=== PATIENT | male | born 1975 | race Caucasian/White ===

== ENCOUNTER 2023-08-06 06:31 | Day surgery (SDC) | payer SELFPAY ==
--- OUTSIDE RECORDS SUMMARY | 2023-08-06 06:34 | XMS RPT_ITS | CCD ---
Author Name Unknown Address [address] [place] [address] Organization [facility] Care Team Providers Care Grand Scribe Name Role Phone Jalen LUCAS, Garry Garza Unavailable Garry Rao MD Unavailable Parul LUCAS, Dr. Wilson Unavailable Wanda Nagy LPN Unavailable Unavailable Problems Active Problems Problem Classification Problem Date Documented Da te Episodic/Chronic Gastrointestinal hemorrhage (2 sources) Gastrointestinal hemorrhage; Translations: [Hemorrhage of anus and rectum] 06-19-2023 Episodic Other screening for suspected conditions (not mental disorders or infectious disease) (2 sources) Patient encounter status; Translations: [Encounter for screening for malignant neoplasm of prostate] 06-17-2020 Episodic Past or Other Problems Problem Classification Problem Date Documented Da te Episodic/Chronic Unclassified (1 source) wants colonoscopy - patient has not been seen since 2000patient is here today because he is wanting a colonoscopy, due to his age and some rectal bleedingHe has had rectal bleeding with wiping over the last year, this comes and goes- always bright red Every now and then he will have a little blood in the toilet bowl, but not oftenNO painIt always ends up going away, but then comes back No weight loss, no abdominal pain. Negative family hx for colon cancer 06-19-2023 Results Test Name Value Interpretation Reference Range Facil ity Vital Signs Date Time Vital Sign Value Performing Clinician Faci lity 06-19-2023 07:06-0500 Body height 177.8 cm Garry Rao MD Work Phone: [facility] 06-19-2023 07:06-0500 Body mass index (BMI) [Ratio] 28.98 kg/m2 Garry Rao MD Work Phone: [employer]; [employer]. 06-19-2023 07:06-0500 Body surface area Derived from formula 2.1 m2 Garry Rao MD Work Phone: [employer] [employer]. 06-19-2023 07:06-0500 Body weight 91.63 kg Garry Rao MD Work Phone: [employer]; [employer]. 06-19-2023 07:06-0500 Diastolic blood pressure 72 mm[Hg] Garry Rao MD Work Phone: [employer]; [employer]. Encounters Encounter Date Encounter Type Care Provider Facility Start: 06-19-2023 End: 06-19-2023 Office outpatient visit 15 minutes Garry Rao MD Work Phone: [facility] Start: 06-17-2020 End: 06-20-2020 Orders Garry Rao MD Work Phone: [facility] Procedures Date Procedure Procedure Detail Performing Clinician Start: 06-19-2023 End: 06-19-2023 No Known Past Surgical History Garry Rao MD Work Phone: Social History Date Type Detail Facility Spouse Spouse Ingo Money; [employer]. Male [employer] [employer]. Work Phone: Tobacco smoking consumption unknown [facility]; [employer]. Work Phone: Summary Purpose Family History Cancer Status:Active Comments:Paterna l Grandfather. Advance Directives No Advanced Directives Records Found Additional Source Comments (unrecognized sect ion and content) No Status Records Found INFORMATION SOURCE (unrecogn ized section and content) FOR RECORDS PERTAINING TO PATIENTS WHO ARE OR HAVE BEEN ENROLLED IN A CHEMICAL DEPENDENCY/SUBSTANCEABUSE PROGRAM, SOME INFORMATION MAY BE OMITTED. This clinical summary was aggregated from multiple sources. Caution should be exercised in using it in the provision of clinical care. This summary normalizes information from multiple sources, and as a consequence, information in this document may materially change the coding, format and clinical context of patient data. In addition, data may be omitted in some cases. CLINICAL DECISIONS SHOULD BE BASED ON THE PRIMARY CLINICAL RECORDS. [facility] [employer] [facility]. provides no warranty or guarantee of the accuracy or completeness of information in this document.
--- NOTE | 2023-08-06 06:49 | PCM.HP.BLA ---
History and Physical Date of Admission: 08/06/23 Intake Vital Signs 07/01/2408:49 Height 5 ft 10 in Weight: 200 lb BMI 28.7 BP 127/78 H Blood Pressure Location Rt brachial Position Sitting Respiration 18 Pulse 67 Pulse Source Monitor Temp 97.4 F L Temp Source Temporal Pulse Oximetry (%) 100 Oxygen Delivery Method room air Intake Visit Reasons: COLONOSCOPY SCREENING, RECTAL BLEEDING Chief Complaint: colonoscopy screening, rectal bleeding Is patient in pain?: No Allergies No Known Allergies Allergy (Unverified 07/01/23 09:49) Medications NK 07/01/23 [History Confirmed 07/01/23] [facility] Social History (Updated 07/01/23 @ 09:49 by Sudha Colbert LPN) Smoking Status: Never smoker alcohol intake: current alcohol intake frequency: holidays/special occasions only substance use type: does not use HPI HPI HPI: 48-year-old male here for colonoscopy. The patient has been having blood in his stool for several years. He said normally it is small amount of bright red blood but occasionally about once a year it is a large amount of blood and this happened recently. He is not having any abdominal pain or constipation or pain with bowel movements. He has never had a colonoscopy and has no family history of colon cancer. [facility] Musculoskeletal: Yes back problems Gastro Gastrointestinal: Yes blood in stool Additional Details: bright red blood in stool Exam Const General: cooperative Orientation: alert and oriented x3 HENMT Head: normal to inspection Neck Neck: normal visual inspection and full ROM Chest Chest palpation & inspection: normal inspection of the chest Resp Effort & Inspection: normal respiratory effort Auscultation: clear to auscultation bilaterally Cardio Rate: regular rate Rhythm: regular rhythm GI Inspection: non-distended Palpation: soft and nontender Skin General: no rashes or lesions noted Neuro General: patient alert and patient oriented x3 Extrem General: full ROM Psych Appearance: grossly normal Mental Status: mental status grossly normal Assessment and Plan Assessment and Plan (1) Blood in stool, maru: Status: Acute Plan: Patient is having blood in his stool. He is also having bright red blood when he Has a bowel movement and wipes. I recommended colonoscopy to evaluate for the source of bleeding and I did that I would retroflex and look for hemorrhoids and we can discuss hemorrhoidectomy if that is the cause of the bleeding. I explained endoscopy in detail to the patient. I explained the risks including but not limited to stroke or heart attack with anesthesia, perforation of the GI tract, bleeding, infection. I explained that any of these could necessitate further emergency surgery. The patient understands and all questions were answered sufficiently. The patient wishes to proceed with procedure. Steve Teran MD Pager: [facility] [address] [place] [address], [address] [place] [address] Office: I have examined the patient and the H&P has been reviewed. There are no clinical changes since date of exam.
[2023-08-06 07:03] VITALS: BP 119/80; PULSE 80; RESP 14; TEMP 36; O2SAT 98; BMI 27.5
[2023-08-06] MEDS: Lactated Ringers 1,000 ML 15 ML IV (07:05)
--- NOTE | 2023-08-06 08:07 | PCM.PN.BLA ---
Progress Note I was able to make it to the cecum but the prep was not adequate. There were no large masses and I did not appreciate a very large hemorrhoids that look like they recently bled. I will reschedule him for a month from now with a Miesha prep to evaluate.
[2023-08-06 08:10] VITALS: BP 112/75; BP 119/80; PULSE 70; RESP 16; TEMP 36.1; O2SAT 99
--- NOTE | 2023-08-06 08:11 | OP.COLON_ITS ---
Patient Name: Rubin Delgadillo Procedure Date: 08/06/2023 7:08 AM Date of : 1975 Age: 48 Procedure: Colonoscopy Indications: Rectal bleeding Providers: Steve Teran MD Medicines: Monitored Anesthesia Care Patient Profile: This is a 48 year old male. Refer to note in patient chart for documentation of history and physical. Last Colonoscopy: none. The patient's first colonoscopy is today. Complications: No immediate complications. Procedure: Pre-Anesthesia Assessment: - Prior to the procedure, a History and Physical was performed, and patient medications and allergies were reviewed. The patient's tolerance of previous anesthesia was also reviewed. The risks and benefits of the procedure and the sedation options and risks were discussed with the patient. All questions were answered, and informed consent was obtained. Prior Anticoagulants: The patient has taken no anticoagulant or antiplatelet agents. After reviewing the risks and benefits, the patient was deemed in satisfactory condition to undergo the procedure. After I obtained informed consent, the scope was passed under direct vision. Throughout the procedure, the patient's blood pressure, pulse, and oxygen saturations were monitored continuously. The Colonoscope was introduced through the anus and advanced to the cecum, identified by appendiceal orifice and ileocecal valve. The colonoscopy was performed with difficulty due to inadequate bowel prep. The patient tolerated the procedure well. The quality of the bowel preparation was inadequate. The ileocecal valve, appendiceal orifice, and rectum were photographed. Scope In: 7:33:59 AM Scope Withdrawal Time 0 hours 14 minutes 10 seconds Scope Out: 8:03:26 AM Total Procedure Duration Time 0 hours 29 minutes 27 seconds Findings: The entire examined colon appeared normal on direct and retroflexion views. Impression: - Preparation of the colon was inadequate. - The entire examined colon is normal on direct and retroflexion views. - No specimens collected. Recommendation: - Discharge patient to home. - Resume previous diet. - Continue present medications. - Repeat colonoscopy in 1 month because the bowel preparation was poor. Procedure Code(s): --- Professional --- 06080, Colonoscopy, flexible; diagnostic, including collection of specimen(s) by brushing or washing, when performed (separate procedure) Diagnosis Code(s): --- Professional --- K62.5, Hemorrhage of anus and rectum CPT copyright 2021 [employer]. All rights reserved. The codes documented in this report are preliminary and upon hair baler review may be revised to meet current compliance requirements. Steve Teran MD 08/06/2023 8:10:27 AM This report has been signed electronically. Number of Addenda: 0 Note Initiated On: 08/06/2023 7:08 AM
--- NOTE | 2023-08-06 08:11 | OP.CCLET_ITS ---
08/06/2023 Garry Rao Re : Colonoscopy procedure for Rubin Delgaidllo Dear Jalen This procedure was performed on Sunday, August 06, 2023. My impressions and recommendations are as follows: Impressions : - Preparation of the colon was inadequate. - The entire examined colon is normal on direct and retroflexion views. - No specimens collected. Recommendations : - Discharge patient to home. - Resume previous diet. - Continue present medications. - Repeat colonoscopy in 1 month because the bowel preparation was poor. My findings are described in the full procedure note, which is enclosed. If I can be of further assistance, please feel free to contact me at Doctor phone number(s): , Work: . Sincerely, Steve Teran MD 08/06/2023 8:10:27 AM This report has been signed electronically.
[2023-08-06 08:15] VITALS: BP 109/79; BP 119/80; PULSE 67; RESP 16; O2SAT 99
[2023-08-06 08:20] VITALS: BP 118/79; BP 119/80; PULSE 67; RESP 16; O2SAT 100
[2023-08-06 08:25] VITALS: BP 113/74; BP 119/80; PULSE 72; RESP 16; TEMP 36.6; O2SAT 100
[2023-08-06 08:41] VITALS: BP 119/80
== END 2023-08-06 08:45 | disposition home or self-care (01) ==
LOC: EN 06:36 → AC 06:36
PROVIDERS: PCP Family Medicine; Referring Provider Family Medicine; Visit Provider Surgery
PROC: 0DJD8ZZ Inspection of Lower Intestinal Tract, Via Natural or Artificial Opening Endoscopic (ICD-10-PCS; CPT 45378; principal; 2023-08-06 07:25)
DX: K62.5 Hemorrhage of anus and rectum (principal)
CPT/HCPCS: 45378; J7120; J2405

== ENCOUNTER 2023-09-10 08:40 | Day surgery (SDC) | payer SELFPAY ==
[2023-09-10 09:01] VITALS: BP 110/68; PULSE 96; RESP 18; TEMP 36.1; O2SAT 99; BMI 27.0
[2023-09-10] MEDS: Lactated Ringers 1,000 ML 15 ML IV (09:09)
--- NOTE | 2023-09-10 09:42 | PCM.HP.BLA ---
History and Physical Date of Admission: 09/10/23 History and Physical Date of Admission: 08/06/23 Intake Vital Signs 07/01/2408:49 Height 5 ft 10 in Weight: 200 lb BMI 28.7 BP 127/78 H Blood Pressure Location Rt brachial Position Sitting Respiration 18 Pulse 67 Pulse Source Monitor Temp 97.4 F L Temp Source Temporal Pulse Oximetry (%) 100 Oxygen Delivery Method room air Intake Visit Reasons: COLONOSCOPY SCREENING, RECTAL BLEEDING Chief Complaint: colonoscopy screening, rectal bleeding Is patient in pain?: No Allergies No Known Allergies Allergy (Unverified 07/01/23 09:49) Medications NK 07/01/23 [History Confirmed 07/01/23] PFSH Social History (Updated 07/01/23 @ 09:49 by Sudha Colbert LPN) Smoking Status: Never smoker alcohol intake: current alcohol intake frequency: holidays/special occasions only substance use type: does not use HPI HPI HPI: 48-year-old male here for colonoscopy. The patient has been having blood in his stool for several years. He said normally it is small amount of bright red blood but occasionally about once a year it is a large amount of blood and this happened recently. He is not having any abdominal pain or constipation or pain with bowel movements. He has never had a colonoscopy and has no family history of colon cancer. [facility] Musculoskeletal: Yes back problems Gastro Gastrointestinal: Yes blood in stool Additional Details: bright red blood in stool Exam Const General: cooperative Orientation: alert and oriented x3 HENMT Head: normal to inspection Neck Neck: normal visual inspection and full ROM Chest Chest palpation & inspection: normal inspection of the chest Resp Effort & Inspection: normal respiratory effort Auscultation: clear to auscultation bilaterally Cardio Rate: regular rate Rhythm: regular rhythm GI Inspection: non-distended Palpation: soft and nontender Skin General: no rashes or lesions noted Neuro General: patient alert and patient oriented x3 Extrem General: full ROM Psych Appearance: grossly normal Mental Status: mental status grossly normal Assessment and Plan Assessment and Plan (1) Blood in stool, maru: Status: Acute Plan: Patient is having blood in his stool. He is also having bright red blood when he Has a bowel movement and wipes. I recommended colonoscopy to evaluate for the source of bleeding and I did that I would retroflex and look for hemorrhoids and we can discuss hemorrhoidectomy if that is the cause of the bleeding. I explained endoscopy in detail to the patient. I explained the risks including but not limited to stroke or heart attack with anesthesia, perforation of the GI tract, bleeding, infection. I explained that any of these could necessitate further emergency surgery. The patient understands and all questions were answered sufficiently. The patient wishes to proceed with procedure. Steve Teran MD Pager: [place] [phone] Office: I have seen and examined the patient again. There are no changes physically. The patient had a poor bowel prep last time it had to be canceled and we will attempt to repeat today. Steve Teran MD Pager: [address], [address] [phone] Office:
--- NOTE | 2023-09-10 10:09 | OP.CCLET_ITS ---
09/10/2023 Garry Rao Re : Colonoscopy procedure for Rubin Delgadillo Dear Jalen This procedure was performed on Sunday, September 10, 2023. My impressions and recommendations are as follows: Impressions : - Preparation of the colon was poor. - Stool. - No specimens collected. Recommendations : - Discharge patient to home. - Resume previous diet. - Continue present medications. - Refer to a surgeon at appointment to be scheduled. - Repeat colonoscopy at appointment to be scheduled because the bowel preparation was poor. My findings are described in the full procedure note, which is enclosed. If I can be of further assistance, please feel free to contact me at Doctor phone number(s): , Work: . Sincerely, Steve Teran MD 09/10/2023 10:08:38 AM This report has been signed electronically.
--- NOTE | 2023-09-10 10:09 | OP.COLON_ITS ---
Patient Name: Rubin Delgadillo Procedure Date: 09/10/2023 9:52 AM Date of : 1975 Age: 48 Procedure: Colonoscopy Indications: Anal bleeding Providers: Steve Teran MD Medicines: Propofol per Anesthesia Patient Profile: Last Colonoscopy: none. The patient's first colonoscopy is today. Complications: No immediate complications. Procedure: Pre-Anesthesia Assessment: - Prior to the procedure, a History and Physical was performed, and patient medications and allergies were reviewed. The patient's tolerance of previous anesthesia was also reviewed. The risks and benefits of the procedure and the sedation options and risks were discussed with the patient. All questions were answered, and informed consent was obtained. Prior Anticoagulants: The patient has taken no anticoagulant or antiplatelet agents. After reviewing the risks and benefits, the patient was deemed in satisfactory condition to undergo the procedure. After I obtained informed consent, the scope was passed under direct vision. Throughout the procedure, the patient's blood pressure, pulse, and oxygen saturations were monitored continuously. The colonoscope was introduced through the anus with the intention of advancing to the cecum. The scope was advanced to the sigmoid colon before the procedure was aborted. Medications were not given. The quality of the bowel preparation was poor. Scope In: 9:59:51 AM Scope Out: 10:02:58 AM Total Procedure Duration Time 0 hours 3 minutes 7 seconds Findings: [Description] stool was found [Site] [Visualization]. Impression: - Preparation of the colon was poor. - Stool. - No specimens collected. Recommendation: - Discharge patient to home. - Resume previous diet. - Continue present medications. - Refer to a surgeon at appointment to be scheduled. - Repeat colonoscopy at appointment to be scheduled because the bowel preparation was poor. Procedure Code(s): --- Professional --- 11579, 53, Colonoscopy, flexible; diagnostic, including collection of specimen(s) by brushing or washing, when performed (separate procedure) Diagnosis Code(s): --- Professional --- K62.5, Hemorrhage of anus and rectum CPT copyright 2021 [employer]. All rights reserved. The codes documented in this report are preliminary and upon auditing coder review may be revised to meet current compliance requirements. Steve Teran MD 09/10/2023 10:08:38 AM This report has been signed electronically. Number of Addenda: 0 Note Initiated On: 09/10/2023 9:52 AM
[2023-09-10 10:11] VITALS: BP 110/68; BP 113/85; PULSE 80; RESP 18; TEMP 36.5; O2SAT 99
[2023-09-10 10:14] VITALS: BP 110/68; BP 115/81; PULSE 74; RESP 18; O2SAT 98
[2023-09-10 10:21] VITALS: BP 110/68; BP 113/83; PULSE 74; RESP 14; O2SAT 98
[2023-09-10 10:24] VITALS: BP 110/68; BP 118/82; PULSE 75; RESP 18; TEMP 36.4; O2SAT 97
--- NOTE | 2023-09-10 10:34 | SUR.PHASEI ---
TATIANA DID NOT LOG OUT AI MCCABE. INITIAL PACU ASSESSMENTS DOCUMENTED UNDER AI MCCABE BUT COMPLETED BY WENDY MCCABE.
--- NOTE | 2023-09-10 10:59 | PCM.PN.BLA ---
Progress Note I met with the patient before his procedure and asked him if his bowel prep was clear. He reports it was clear and much better than last time. I asked him if he can see to the bottom of the toilet and he said yes. I took him back for his procedure and he still had basically unprepped colon. There was stool everywhere and I was unable to assess any of the colon. I discussed with him and he said he never got instructions to do a 2-day prep after his last failed prep and he just did the same prep he did last time which not surprisingly did not work. It is documented in the computer that we instructed him to do a 2-day prep and we did send a prescription of GoLytely for a second day to his pharmacy in [place]. He said he never received any instructions from our office to go picking machine operator a prescription and the pharmacy never called him. He called in saying he did not have bowel prep instructions so we asked him to come in and pick them up. He did but I am unsure if one of my staff gave him the wrong instructions because he says he has the exact same prep at home and he did a MiraLAX prep again. I offered him to go to [facility] for a repeat attempt of this and management and he would like to stay here. I offered him repeat with a definite 2-day bowel preparation and I hand-delivered instructions for 2-day bowel prep to him in recovery. If you would like to proceed he will call our office to reschedule and we will reorder GoLytely. The patient is also requesting that this visit not be charged for. I informed the patient that we could try to ask finance if they would we have any of the charges or decrease them but unfortunately we proceeded as he told me the prep worked and he was clear. Steve Teran MD Pager: [facility] [address] [place] [address], [address] [place] [address] Office:
[2023-09-10 11:08] VITALS: BP 110/68
== END 2023-09-10 11:12 | disposition home or self-care (01) ==
LOC: EN 08:45 → AC 08:47
PROVIDERS: PCP Family Medicine; Referring Provider Family Medicine; Visit Provider Surgery
PROC: 0DJD8ZZ Inspection of Lower Intestinal Tract, Via Natural or Artificial Opening Endoscopic (ICD-10-PCS; CPT 45378; principal; 2023-09-10 09:25)
DX: K62.5 Hemorrhage of anus and rectum (principal); F17.290 Nicotine dependence, other tobacco product, uncomplicated
CPT/HCPCS: 45378; J7120; J2405

== ENCOUNTER 2023-11-04 08:52 | Day surgery (SDC) | payer SELFPAY ==
[2023-11-04 09:09] VITALS: BP 118/76; PULSE 91; RESP 16; TEMP 36.6; O2SAT 100; BMI 26.2
[2023-11-04] MEDS: Lactated Ringers 1,000 ML 15 ML IV (09:11)
--- NOTE | 2023-11-04 10:17 | PCM.HP.BLA ---
History and Physical Date of Admission: 11/04/23 SUHAS GUNTER, is a 48 M who presents to the office today for initial consult. Patient presenting today stating he is due for his screening colonoscopy. Also states over the past few years has seen bright red blood when wiping. Reports he has a mostly soft bowel movement once a day. A few times a week will have hard, formed stool. It is on those days he sees the blood. Does not have any pain. Denies abdominal pain, cramping, bloating. Does not have any pertinent medical, surgical or family history. ROS Const Constitutional: No fatigue, fever(s) or weight change ENT ENT: No difficulty swallowing Gastro GI: No abdominal pain, belching, bloating, change in bowel habits, change in stool character, coffee ground emesis, constipation, cramping, diarrhea, heartburn, difficulty swallowing, feeling full early, excessive flatus, incontinent of stools, Vomiting blood/hematemesis, Blood in stool, loose stools, Black,tarry stools, nausea/dyspepsia, pain with swallowing, vomiting or other Musc Musculoskeletal: No joint pain Skin Skin: No yellowing of the eye or itchy eyes Psych Psychiatric: No anxiety and No depression Endo Endocrine: No fatigue or weight change Aller/Imm Allergy/Immunologic: No itchy eyes Robbie/Lymp Hematologic/Lymphatic: No easy bleeding or easy bruising Exam Const General: cooperative and comfortable Nutritional Appearance: average body habitus and well nourished [facility] Head: normal to inspection Ears: hearing grossly normal bilaterally Nose: external nose normal Face and sinus: normal facial exam Mouth: oral mucosae normal Throat: posterior oropharynx normal Eyes General: appearance normal, both eyes and all related structures Neck Neck: normal visual inspection Chest Chest palpation & inspection: normal inspection of the chest and normal palpation of entire chest wall Resp Effort & Inspection: normal respiratory effort Auscultation: Bilateral: Clear to Auscultation Cardio Palpation: normal PMI Rate: regular rate Rhythm: regular rhythm GI Inspection: normal to inspection Auscultation: normal bowel sounds Percussion: normal to percussion Palpation: no hepatosplenomegaly Skin General: no rashes or lesions noted Neuro General: patient alert Extrem General: normal to inspection Psych Affect: normal affect Assessment and Plan Assessment and Plan (1) Rectal hemorrhage: Plan: 48-year-old gentleman comes in with painless rectal bleeding. Differential diagnosis for his painless rectal bleeding will be hemorrhoidal disease, possible anal fissure on the rectal side, diverticular disease and less likely stercoral ulcer. He will undergo colonoscopy with possible banding and/or cautery. Medications: Refilled peg 3350-electrolytes 236-22.74-6.74 -5.86 gram until fecal effluent is clear; do not exceed a total volume of 4000 mL 4,000 mL PO ONCE 4,000 mL 0RF I have examined the patient and the H&P has been reviewed. There are no clinical changes since date of exam.
[2023-11-04 10:46] VITALS: BP 118/76; BP 98/74; PULSE 79; RESP 18; TEMP 36.1; O2SAT 100
[2023-11-04 10:50] VITALS: BP 118/76; BP 88/67; PULSE 79; RESP 16; O2SAT 100
--- NOTE | 2023-11-04 10:53 | OP.CCLET_ITS ---
11/04/2023 Garry Rao Re : Colonoscopy procedure for Rubin Elie Espitiar Jalen This procedure was performed on Saturday, November 04, 2023. My impressions and recommendations are as follows: Impressions : - Preparation of the colon was fair. - Internal hemorrhoids. Banded. - Stool in the recto-sigmoid colon, in the transverse colon and in the ascending colon. - Redundant colon. - No specimens collected. Recommendations : - Discharge patient to home. - Resume previous diet. - Continue present medications. - Repeat colonoscopy in 10 years for screening purposes. My findings are described in the full procedure note, which is enclosed. If I can be of further assistance, please feel free to contact me at . Sincerely, Jese Triana, 11/04/2023 10:53:09 AM This report has been signed electronically.
--- NOTE | 2023-11-04 10:53 | OP.COLON_ITS ---
Patient Name: Rubin Delgadillo Procedure Date: 11/04/2023 10:14 AM Date of : 1975 Age: 48 Procedure: Colonoscopy Indications: Screening for colorectal malignant neoplasm Providers: Jese Triana DO Medicines: Monitored Anesthesia Care Patient Profile: This is a 48 year old male. Refer to note in patient chart for documentation of history and physical. Last Colonoscopy: 6 months ago. Complications: No immediate complications. Procedure: Pre-Anesthesia Assessment: - Prior to the procedure, a History and Physical was performed, and patient medications and allergies were reviewed. The patient is competent. The risks and benefits of the procedure and the sedation options and risks were discussed with the patient. All questions were answered and informed consent was obtained. Patient identification and proposed procedure were verified by the physician. Mental Status Examination: alert and oriented. Airway Examination: normal oropharyngeal airway and neck mobility. Prophylactic Antibiotics: The patient does not require prophylactic antibiotics. Prior Anticoagulants: The patient has taken no anticoagulant or antiplatelet agents. After reviewing the risks and benefits, the patient was deemed in satisfactory condition to undergo the procedure. The anesthesia plan was to use monitored anesthesia care (MAC). Immediately prior to administration of medications, the patient was re-assessed for adequacy to receive sedatives. The heart rate, respiratory rate, oxygen saturations, blood pressure, adequacy of pulmonary ventilation, and response to care were monitored throughout the procedure. The physical status of the patient was re-assessed after the procedure. After I obtained informed consent, the scope was passed under direct vision. Throughout the procedure, the patient's blood pressure, pulse, and oxygen saturations were monitored continuously. The pediatric colonoscope was introduced through the anus and advanced to the terminal ileum. The colonoscopy was performed without difficulty. The patient tolerated the procedure well. The quality of the bowel preparation was fair. The terminal ileum, ileocecal valve, appendiceal orifice, and rectum were photographed. Scope In: 10:24:16 AM Scope Withdrawal Time 0 hours 14 minutes 2 seconds Scope Out: 10:41:53 AM Total Procedure Duration Time 0 hours 17 minutes 37 seconds Findings: The perianal and digital rectal examinations were normal. Internal hemorrhoids were found during retroflexion. The hemorrhoids were Grade II (internal hemorrhoids that prolapse but reduce spontaneously). A hemorrhoid was isolated with anoscopy. The ShortShot ligator was positioned over the hemorrhoid at the left lateral position. Suction was applied and one rubber band was placed over the hemorrhoid. This was checked to make certain that the muscularis was free of the band. There were no complications. Stool was found in the recto-sigmoid colon, in the transverse colon and in the ascending colon. The splenic flexure was moderately redundant. Impression: - Preparation of the colon was fair. - Internal hemorrhoids. Banded. - Stool in the recto-sigmoid colon, in the transverse colon and in the ascending colon. - Redundant colon. - No specimens collected. Recommendation: - Discharge patient to home. - Resume previous diet. - Continue present medications. - Repeat colonoscopy in 10 years for screening purposes. Procedure Code(s): --- Professional --- 31224, Colonoscopy, flexible; with band ligation(s) (eg, hemorrhoids) CPT copyright 2021 [employer]. All rights reserved. The codes documented in this report are preliminary and upon kiln burner review may be revised to meet current compliance requirements. Jese Triana DO 11/04/2023 10:53:09 AM This report has been signed electronically. Number of Addenda: 0 Note Initiated On: 11/04/2023 10:14 AM
[2023-11-04 10:55] VITALS: BP 106/65; BP 118/76; PULSE 74; RESP 16; O2SAT 100
[2023-11-04 11:02] VITALS: BP 106/65; BP 118/76; PULSE 70; RESP 16; TEMP 36.8; O2SAT 96
[2023-11-04 11:15] VITALS: BP 118/76
== END 2023-11-04 11:29 | disposition home or self-care (01) ==
LOC: EN 08:53 → AC 08:55
PROVIDERS: PCP Family Medicine; Referring Provider Family Medicine; Visit Provider Internal Medicine Gastroenterology
PROC: 0DJD8ZZ Inspection of Lower Intestinal Tract, Via Natural or Artificial Opening Endoscopic (ICD-10-PCS; CPT 45378; principal; 2023-11-04 09:55)
DX: Z12.11 Encounter for screening for malignant neoplasm of colon (principal); K62.5 Hemorrhage of anus and rectum; K64.1 Second degree hemorrhoids; Q43.8 Other specified congenital malformations of intestine
CPT/HCPCS: 46221; J7120; J2405